=== PATIENT | female | born 1980 | race Caucasian/White ===

== ENCOUNTER 2016-12-04 08:24 | Observation (INO) | payer MEDICAID ==
[~2016-12-04] VITALS: Ht 162.6 cm; Wt 71.8 kg
[~2016-12-04 08:24] MED LIST: CYCL1TAB29 PO; FENT25DI TD; NAPR500T PO; PREG300 PO
[2016-12-04] MEDS ORDERED: POVIDONE IODINE 5% (ANTISEPSIS KIT) 4 APPLICATIONS EACH NARE PRN (09:00)
[2016-12-04] MEDS ORDERED: INSULIN HUMAN REGULAR 1,000 UNITS/10 ML VIAL SQ PRN (09:00)
[2016-12-04] MEDS ORDERED: LACTATED RINGER'S 1000 ML IV PRN (09:00)
[2016-12-04] MEDS ORDERED: LACTATED RINGER'S 1000 ML INJ 1,000 ML IV SCH (09:00)
[2016-12-04] MEDS ORDERED: SODIUM CHLORID 0.9% 500 ML IV PRN (09:00)
[2016-12-04] MEDS ORDERED: CHLORHEXIDINE GLUCONATE 2 % 1 PACK (2 CLOTHS) TOPICAL PRN (09:00)
[2016-12-04] MEDS ORDERED: METOPROLOL TARTRATE 25 MG TAB PO PRN (09:00)
[2016-12-04] MEDS ORDERED: ceFAZolin 1,000 MG/NS 100 ML IV SCH ×2 (09:00)
[2016-12-04] MEDS ORDERED: LYRI150C PO (09:08)
[2016-12-04] MEDS ORDERED: HYDR-3288 PO (09:12)
[2016-12-04 09:50] LABS: APTT (PATIENT) 28.7 SEC (24.3-30.1)
[2016-12-04] MEDS ORDERED: HYDROmorphone HCL PF 2 MG/ML VIAL ONE (09:55)
[2016-12-04] MEDS ORDERED: MIDAZOLAM HCL 2 MG/2 ML VIAL ONE ×3 (09:56→17:26)
[2016-12-04] MEDS ORDERED: GELFOAM SIZE 100 ONE (11:21)
[2016-12-04] MEDS ORDERED: THROMBIN (TOPICAL) 5,000 UNIT VIAL ONE (11:21)
[2016-12-04] MEDS ORDERED: LIDOCAINE 2%/EPINEPHrine PF 1:200,000 20ML SDV ONE (11:22)
[2016-12-04] MEDS ORDERED: GENTAMICIN SULFATE 80 MG/2 ML VIAL ONE (11:22)
[2016-12-04] MEDS ORDERED: ceFAZolin INJ 1,000 MG VIAL ONE (13:30)
[2016-12-04] MEDS ORDERED: GLYCOPYRROLATE 1 MG/5 ML SYRINGE IV PUSH ONE (14:19)
[2016-12-04] MEDS ORDERED: ONDANSETRON HCL 4 MG/2 ML VIAL IV PUSH ONE (14:19)
[2016-12-04] MEDS ORDERED: NEOSTIGMINE 3 MG/3 ML SYR IV ONE ×2 (14:19)
[2016-12-04] MEDS ORDERED: DEXAMETHASONE SOD PHOS 4 MG/ML VIAL IV ONE (14:19)
[2016-12-04] MEDS ORDERED: LACTATED RINGER'S 1000 ML INJ 1,000 ML IV ONE (14:19)
[2016-12-04] MEDS ORDERED: ROCURONIUM INJ 50 MG/5 ML SYRINGE IV PUSH ONE (14:19)
[2016-12-04] MEDS ORDERED: LIDOCAINE HCL 1% PF 5 ML AMPULE OTHER ONE (14:19)
[2016-12-04] MEDS ORDERED: DO NOT ADM ANY ANTICOAGULANT DRUGS PRN (17:15)
--- NOTE | 2016-12-04 17:21 | RADRPT ---
EXAM DATE/TIME: 12/04/2016 14:26 [place] COMPARISON: No previous studies available for comparison. INDICATIONS : Post hardware placement cervical spine MEDICAL HISTORY : None. SURGICAL HISTORY : None. ENCOUNTER: Initial ACUITY: 1 day PAIN SCORE: Non-responsive. LOCATION: Cervical spine FINDINGS: There is placement of an articulating prosthetic disc at C5-6 with normal alignment. Patient intubate d. Drain present. CONCLUSION: 1. Postoperative change as above. Fito Reagan MD on December 04, 2016 at 17:19 Board Certified Radiologist. This report was verified electronically.
[2016-12-04] MEDS ORDERED: D5-1/2 NS + KCL 20 MEQ INJ 1,000 ML IV SCH (17:34)
[2016-12-04] MEDS ORDERED: NALOXONE HCL 0.4 MG/ML AMP IV PUSH PRN (17:45)
[2016-12-04] MEDS ORDERED: SODIUM CHLORIDE 0.9% FLUSH 5 ML FLUSH IVF PRN (17:45)
[2016-12-04] MEDS ORDERED: HYDROmorphone HCL PF 1 MG/ML VIAL IV PUSH PRN (17:45)
[2016-12-04] MEDS ORDERED: ACETAMINOPHEN/HYDROcodone 325 MG/5 MG TAB PO PRN (17:45)
[2016-12-04] MEDS ORDERED: ONDANSETRON HCL 4 MG/2 ML VIAL IV PRN (17:45)
--- NOTE | 2016-12-04 17:45 | PD.OP ---
Operative Report Date of Surgery: Dec 04, 2016 Preoperative Diagnosis: (1) HNP (herniated nucleus pulposus), cervical (2) Cervical radiculopathy at C6 1. C5 6 herniated nucleus pulposus 2. Left C6 radiculopathy Postoperative Diagnosis: (1) HNP (herniated nucleus pulposus), cervical (2) Cervical radiculopathy at C6 1. C5 6 herniated nucleus pulposus 2. Left C6 radiculopathy Procedure: 1. C5 6 anterior cervical discectomy, resection herniated nucleus pulposis- microtechnique 2. C5 6 artificial disc placement (Mobi-C) Surgeon: Zohaib Ornelas Airset Caster(s): Nicolette Doss Operation and Findings: Procedure in detail: The patient was brought into the operating room and positioned in supine position on the 3080 table with the head and neck in neutral position. Bran catheter was placed. Lines were established by Anesthesia. Gen. endotracheal anesthesia was induced without difficulty, taking care not to significantly flex or extend the patient's neck during intubation and positioning. Leads for intraoperative neuro monitoring were placed and a baseline study obtained. All extremities were appropriately padded. The neck and upper chest were shaved with clippers and sterilely prepped and draped. Appropriate timeout procedure was performed with all personnel present and in agreement 1% Xylocaine with epinephrine was used for local infiltration over the incision site which was made transversely at the left C5-6 level and carried sharply down through the platysma muscle. The exposure was continued medial to the sternocleidomastoid muscle and carotid artery, and lateral to the trachea and esophagus. The prevertebral fascia was elevated away from the anterior longitudinal ligament with a Kitner sponge. The longus coli muscle on each side was elevated with the Sheikh elevator. The self-retaining retractor was placed with the blades beneath the longus coli muscle on each side. The appropriate levels were confirmed with intraoperative C-arm and preoperative imaging studies. The microscope was brought into place and used for the remainder of the procedure including the closure. The 12 mm distraction pins were used as needed for gentle distraction during the procedure. The procedure was performed at the C5 6 level. The disc and annulus was incised with a 15 blade knife and discectomy performed with pituitary biopsy forceps and straight and angled curettes. The endplates were thoroughly cleaned with a curette. The TPS drill with the 4 mm barrel bur was used to remove the posterior margin of the vertebral body to remove any osteophytes and allow adequate access to the anterior spinal canal. The thin ligament dissector was used to free up the posterior annulus and ligament from the vertebral body margin. The remainder of the resection of the posterior annulus and ligament as well as the posterior osteophyte and bilateral uncovertebral joint as needed was performed with the 2 and 3 mm thin footplate Kerrison rongeurs. A prominent herniated nucleus pulposus was encountered posterior to the annulus at the central to left side of the canal and was lifted away from the thecal sac with the thin ligament dissector and removed. The appropriate size 6 mm height Mobi- C implant was then chosen using the trial. Using anatomic landmarks, and AP and lateral C-arm imaging, the appropriate size Mobi- C then placed with a good fit of the implant. The blunt nerve hook was used to probe beneath the implant to ensure that there was no impingement on the thecal sac or exiting nerve roots. The entire construct was checked with intraoperative C-arm and felt to be satisfactory. The 10 Sami drain was brought out through a small incision in the left lower neck and secured to the skin with nylon suture and attached to sterile suction. The closure was performed with 3-0 Vicryl running for the platysma and interrupted for the subcutaneous closure, with 4-0 Vicryl running for the subcuticular closure. A dressing of sterile Mastisol, Steri-Strips, and Primapore dressing was placed. The patient was taken to recovery room in stable condition. All counts were correct at the end of the case. Estimated blood loss was 80 cc No specimen was sent to pathology. Intraoperative neuro monitoring remained stable during the procedure. Zohaib Ornelas MD Dec 04, 2016 17:45
[2016-12-04] MEDS ORDERED: METHOCARBAMOL 500 MG TAB PO ONE (18:15)
[2016-12-04] MEDS ORDERED: CYCLOBENZAPRINE HCL 10 MG TAB PO PRN (18:15)
[2016-12-04] MEDS ORDERED: DIAZEPAM 2 MG TAB PO PRN (18:15)
[2016-12-04 18:41] VITALS: BP 133/67; PULSE 98; TEMP 99; O2SAT 98
[2016-12-04 20:28] VITALS: O2SAT 98
[2016-12-04 20:30] VITALS: BP 137/72; PULSE 118; RESP 17; TEMP 97.9; O2SAT 98
[2016-12-04] MEDS: DOCUSATE SODIUM 100 MG CAP PO SCH (20:44)
[2016-12-04] MEDS: PREGABALIN 75 MG CAP PO SCH (20:44)
[2016-12-04] MEDS: MORPHINE SULFATE 4 MG/ML INJ IV PUSH PRN ×2 (20:46→23:28)
[2016-12-04] MEDS: SODIUM CHLORIDE 0.9% FLUSH 5 ML FLUSH IVF SCH (21:00)
[2016-12-05 01:08] VITALS: BP 122/68; PULSE 100; RESP 16; TEMP 97.4; O2SAT 99
[2016-12-05] MEDS: ACETAMINOPHEN/HYDROcodone 325 MG/10 MG TAB PO PRN ×3 (01:41→09:24)
[2016-12-05] MEDS: MORPHINE SULFATE 4 MG/ML INJ IV PUSH PRN (04:33)
[2016-12-05 05:41] VITALS: BP 125/68; PULSE 84; RESP 16; TEMP 98.6; O2SAT 99
[2016-12-05 08:22] VITALS: BP 132/74; PULSE 94; RESP 20; TEMP 98.9; O2SAT 99
[2016-12-05 08:30] VITALS: O2SAT 99
[2016-12-05] MEDS: SODIUM CHLORIDE 0.9% FLUSH 5 ML FLUSH IVF SCH (09:00)
[2016-12-05] MEDS ORDERED: PANTOPRAZOLE SOD 40 MG DELAYED RELEASE TAB PO SCH (09:00)
[2016-12-05] MEDS ORDERED: HYDR-3583 PO (09:13)
[2016-12-05] MEDS: DOCUSATE SODIUM 100 MG CAP PO SCH (09:23)
[2016-12-05] MEDS: PREGABALIN 75 MG CAP PO SCH (09:23)
--- NOTE | 2016-12-05 10:53 | HHI.NSPN ---
(Gonzalo Lebron) History Chief Complaint: Spasms to the neck and chest wall. (Gonzalo Lebron) Interval History 12/04: The patient presented to [facility] to have an anterior cervical discectomy at the C5-6 level due to a herniated disc and left side radiculopathy. Post-operatively she was admitted to a regular med/surg floor. 12/05: The patient has done well since admission to the floor. When seen this morning she states she is doing good. She does have some pain to the left posterolateral neck. She did say she had some twitching to the neck down to the chest wall this morning when she first got up to go to the bathroom. She has not hand any since but she did endorse spasm-like sensations intermittently to the area. She also endorsed intermittent numbness to the medial left hand and proximal forearm which was present before surgery as well. (Gonzalo Lebron) System Review Comments Constitutional: Patient denies any fever or chills. HEENT: Patient denies any sore throat or difficulty swallowing. Respiratory: Patient denies any shortness of breath or productive cough. Cardiovascular: Patient had a "twitching" to the chest wall this morning that has resolved. She denies any chest pain, palpitations or irregular heartbeat. Gastrointestinal: Patient denies any abdominal pain, nausea, vomiting or incontinence of stool. Genitourinary: Patient denies any incontinence of urine. Musculoskeletal: Patient complains has some pain to the left side of the neck and spasm like symptoms to the neck and chest wall. She denies any pain or weakness to the extremities. Neurologic: Patient complains of intermittent numbness to the left medial hand and proximal forearm. She denies any headache, dizziness or tingling. (Gonzalo Lebron) Exam Results 12/03/16 12/03/16 12/04/16 12/04/16 12/05/16 12/05/16 06:00 18:00 06:00 18:00 06:00 18:00 Intake Total 1200 ml 480 ml Output Total 80 ml 1300 ml Balance 1120 ml -820 ml Intake Oral 480 ml IV Total 100 ml Other 1100 ml Output Urine Total 1300 ml Estimated Blood Loss 80 ml # Voids 1 5 Vital Signs Date Time Temp Pulse Resp B/P (MAP) Pulse Ox O2 Delivery O2 Flow Rate FiO2 12/05/16 08:22 98.9 94 20 132/74 (93) 99 12/05/16 08:03 16 12/05/16 05:41 98.6 84 16 125/68 (87) 99 12/05/16 01:08 97.4 100 16 122/68 (86) 99 12/04/16 20:30 97.9 118 17 137/72 (93) 98 12/04/16 20:28 98 21 12/04/16 18:41 99.0 98 133/67 (89) 98 12/04/16 18:15 102 16 127/75 (92) 96 Nasal Cannula 2 12/04/16 18:00 103 16 138/75 (96) 95 Nasal Cannula 2 12/04/16 17:45 105 16 123/69 (87) 93 Nasal Cannula 2 12/04/16 17:30 110 16 121/69 (86) 96 Nasal Cannula 2 12/04/16 17:19 99.7 108 16 116/78 (91) 95 Nasal Cannula 2 12/04/16 09:17 98.6 77 20 107/72 (84) 97 (Gonzalo Lebron) Physical Examination GENERAL: Awake & alert, readily interacts. Affect normal. NAD. SKIN: Warm & dry. Anterior neck surgical incision w/intact dressing, very superficial abrasions to the anterior left lower leg, o/w no rashes, ulcerations or other lesions noted. HEENT: Normocephalic, atraumatic. NECK: [place] J cervical collar in place. Intact dressing to anterior surgical incision w/steri-strips intact, mildly TTP, LINDSEY drain to bulb suction w/scant sanguinous drainage. Midline cervical spine NTTP but mildly TTP left lower cervical paraspinous musculature. No JVD, trachea midline. CARDIOVASCULAR: S1S2 w/RRR w/o M/G/R, radial & pedal pulses 2+ bilaterally, cap refill < 2 sec, no pedal edema. RESPIRATORY: CTAB w/o W/R/R, equal excursion, nonlaboured, on RA. GASTROINTESTINAL: Abdomen soft, nontender, positive bowel sounds. MUSCULOSKELETAL: RYDER w/o difficulty, mildly TTP superior posterior left shoulder along the trapezius, no evident deformity or clubbing. NEUROLOGICAL: AAOx3. Speech clear & appropriate. Follows simple commands w/o difficulty. Sensation intact to light touch to all extremities. Motor strength 5/5 to all major flexion & extension muscle groups. (Gonzalo Lebron) Lab, Micro, Other Results Recent Impressions Cervical Spine X-Ray 12/04/16 0000 Signed Impressions: Service Date/Time: November 14:26 - CONCLUSION: 1. Postoperative change as above. Fito Reagan MD Laboratory Tests Test 12/04/16 09:15 Prothrombin Time 11.0 SEC Prothromb Time International Ratio 1.0 RATIO Activated Partial Thromboplast Time 28.7 SEC (Gonzalo Lebron) Medical Decision Making Impression and Plan Impression: (1) HNP (herniated nucleus pulposus), cervical (2) Cervical radiculopathy at C6 1. C5 6 herniated nucleus pulposus 2. Left C6 radiculopathy Patient doing well post-operatively and is neurologically intact. POD #1 () s/p: 1. C5 6 anterior cervical discectomy, resection herniated nucleus pulposis- microtechnique 2. C5 6 artificial disc placement (Mobi-C) Plan: D/C LINDSEY drain. Will d/c patient home. (Gonzalo Lebron) Attending Statement The exam, history, and the medical decision-making described in the above note were completed with the assistance of the mid-level provider. I reviewed and agree with the findings presented. I attest that I had a [id number] encounter with the patient on the same day, and personally performed and documented my assessment and findings in the medical record. Neurologic exam stable postoperative. Incision dry and intact Minimal drainage Discontinue drain Stable for discharge today Discharge instructions given Wound care discussed Medications discussed Follow-up appointment 10-14 days (Zohaib Ornelas MD) Gonzalo Lebron Dec 05, 2016 10:53 Zohaib Ornelas MD Dec 08, 2016 08:27
--- NOTE | 2016-12-05 10:58 | HHI.DCPOC ---
Discharge Care Plan Diagnosis: (1) Cervical radiculopathy at C6 (2) HNP (herniated nucleus pulposus), cervical Your Health Problems Are: Incision/Drains Goals to Promote Your Health * To prevent worsening of your condition and complications * To maintain your health at the optimal level Keep the cervical collar on at all times. Avoid any strenuous activity, excessive lifting, reaching, pulling etc. Avoid any medication containing aspirin or NSAIDs (ibuprofen, naproxen, etc.) Leave the dressing intact for the next 7 days then you may take it off. After removing the white dressing leave the steri-strips on and let them fall off on their own. No showering until the surgical incision has healed. Follow up in the office in 2 weeks for a wound check. Directions to Meet Your Goals Take your medications as prescribed Follow your dietary instruction Follow activity as directed Keep the cervical collar on at all times. Avoid any strenuous activity, excessive lifting, reaching, pulling etc. Avoid any medication containing aspirin or NSAIDs (ibuprofen, naproxen, etc.) Leave the dressing intact for the next 7 days then you may take it off. After removing the white dressing leave the steri-strips on and let them fall off on their own. No showering until the surgical incision has healed. Follow up in the office in 2 weeks for a wound check. Keep your appointments as scheduled Take your immunizations and boosters as scheduled If your symptoms worsen call your PCP, if no PCP go to Urgent Care Center or Emergency Room Smoking is Dangerous to Your Health. Avoid second hand smoke Call the 24-hour hour crisis hotline for domestic abuse at Gonzalo Lebron Dec 05, 2016 10:58
--- NOTE | 2016-12-05 11:02 | HHI.DS ---
Discharge Summary Admission Date Dec 04, 2016 at 17:40 Discharge Date: Dec 05, 2016 Admitting Diagnosis (1) Cervical radiculopathy at C6 Diagnosis: Principal ICD Code: M54.12 - Radiculopathy, cervical region (2) HNP (herniated nucleus pulposus), cervical Diagnosis: Secondary ICD Code: M50.20 - Other cervical disc displacement, unspecified cervical region Procedures : 1. C5 6 anterior cervical discectomy, resection herniated nucleus pulposis- microtechnique 2. C5 6 artificial disc placement (Mobi-C) Significant Findings Laboratory Tests Test 12/04/16 09:15 Hospital Course 12/04: The patient presented to [facility] to have an anterior cervical discectomy at the C5-6 level due to a herniated disc and left side radiculopathy. Post-operatively she was admitted to a regular med/surg floor. 12/05: The patient has done well since admission to the floor. When seen this morning she states she is doing good. She does have some pain to the left posterolateral neck. She did say she had some twitching to the neck down to the chest wall this morning when she first got up to go to the bathroom. She has not hand any since but she did endorse spasm-like sensations intermittently to the area. She also endorsed intermittent numbness to the medial left hand and proximal forearm which was present before surgery as well. Pt Condition on Discharge: Good Discharge Disposition: Discharge Home Discharge Instructions DIET: Follow Instructions for: As Tolerated, No Restrictions ACTIVITIES You can perform: Full Weight Bearing Activities to Avoid: Lifting/Bending, Strenuous Activity ADDITIONAL Activity Instructio: Keep the cervical collar on at all times. Avoid any strenuous activity, excessive lifting, reaching, pulling etc. Additional Information Avoid any medication containing aspirin or NSAIDs (ibuprofen, naproxen, etc.) Leave the dressing intact for the next 7 days then you may take it off. After removing the white dressing leave the steri-strips on and let them fall off on their own. No showering until the surgical incision has healed. Follow up in the office in 2 weeks for a wound check. Gonzalo Lebron Dec 05, 2016 11:02
[2016-12-26] MEDS ORDERED: HYDR-3580 PO (11:36)
== END 2016-12-05 11:27 | disposition home or self-care (01) ==
LOC: HSDC 08:24 → HSDI 17:40 → N05A 18:36
PROVIDERS: ADMIT Neurological Surgery; ATTEND Neurological Surgery
DX: M50.122 Cervical disc disorder at C5-C6 level with radiculopathy (principal); Z01.812 Encounter for preprocedural laboratory examination
CPT/HCPCS: 00600; 20936; 22551; 22845; 22853; 22856; 72040; 76000; 85610; 85730; 94150; 96374; 96375; 96376; C1889; G0378; J0690; J1100; J1580; J2250; J2270; J2405; J2710; J3010; J3480; J7120; L0150; L0172; J1170